=== PATIENT | male | born 1945 | race Caucasian/White ===

== ENCOUNTER 2017-06-25 22:22 | Emergency (ER) | payer BC ==
[~2017-06-25] VITALS: Ht 162.6 cm; Wt 63.5 kg
[~2017-06-25 22:22] MED LIST: ADVIL100 M2 PO; ALEVE220 M1 PO; APAP500 PO; LISINOPRIL-HCT1 EAC1 PO; METROGEL55 GM TP; PERCOCET 5-3251 EACH PO; PRILOSEC20 MG PO; TRAZODONE HCL100 MG PO; ZOCOR 10 MG TAB10 MG PO; ZOFRAN ODT4 MG PO
[2017-06-25 23:13] LABS: HEMOGLOBIN 14.4 gm/dL (14.0-18.0); MCH 30.6 pg (26.0-34.0); MCHC 34.4 g/dL (28.0-37.0); MCV 88.9 fL (80.0-100.0); PLATELET COUNT 167 thou/uL (150-400); RBC 4.72 mil/uL (4.50-6.00); RDW 13.4 % (10.5-14.5); WBC 5.2 thou/uL (4.0-11.0)
[2017-06-25 23:19] LABS: ANION GAP 13 mmol/L (7-16); BUN 9 mg/dL (7-18); CALCIUM 8.7 mg/dL (8.5-10.1); CHLORIDE 88 mmol/L (98-107); CO2 24 mmol/L (21-32); CREATININE 0.9 mg/dL (0.7-1.3); GLUCOSE 152 mg/dL (74-106); POTASSIUM 3.2 mmol/L (3.5-5.1); SODIUM 125 mmol/L (136-145)
[2017-06-25 23:23] LABS: MANUAL DIFF YES
[2017-06-25 23:28] LABS: ALKALINE PHOSPHATASE 82 U/L (46-116); DIRECT BILIRUBIN 0.2 mg/dL (<0.1-0.3); SGOT 29 U/L (15-37); SGPT 25 U/L (30-65); TOTAL BILIRUBIN 0.9 mg/dL (<0.1-1.0); TOTAL PROTEIN 7.6 g/dL (6.4-8.2); TROPONIN-I < 0.04 ng/mL (<0.04-0.07)
[2017-06-25] MEDS ORDERED: PHENERGAN 25 MG25 M1 PO (23:30)
[2017-06-25] MEDS ORDERED: PROMS25 WY RECTAL (23:30)
[2017-06-26 00:31] LABS: ABSOLUTE NEUTROPHILS 4.3 thou/uL (1.4-8.2); MYELOCYTES 1 %; TOTAL CELL COUNT 100
== END 2017-06-26 00:17 | disposition home or self-care (01) ==
LOC: ER 22:22
PROVIDERS: Emergency Medicine
DX: R51 Headache (principal); R11.2 Nausea with vomiting, unspecified; E87.6 Hypokalemia; I10 Essential (primary) hypertension; E78.00 Pure hypercholesterolemia, unspecified

== ENCOUNTER 2019-12-07 09:54 | Emergency (ER) | payer BC ==
[~2019-12-07] VITALS: Ht 162.6 cm; Wt 59.9 kg
[~2019-12-07 09:54] MED LIST changes: +PHENERGAN 25 MG25 M1 PO; +PROMS25 WY RECTAL
[2019-12-07 10:19] LABS: URINE BILIRUBIN NEGATIVE (Negative); URINE BLOOD NEGATIVE (Negative); URINE CLARITY CLEAR; URINE COLOR YELLOW; URINE GLUCOSE-RANDOM* NEGATIVE (Negative); URINE KETONES NEGATIVE (Negative); URINE LEUKOCYTES-REFLEX NEGATIVE (Negative); URINE NITRITE-REFLEX NEGATIVE (Negative); URINE PROTEIN (DIPSTICK) NEGATIVE (Negative); URINE UROBILINOGEN 0.2 E.U./dl (0.2-1.0)
[2019-12-07 10:51] LABS: HEMATOCRIT 42.1 % (42.0-52.0); HEMOGLOBIN 14.1 gm/dL (14.0-18.0); MCH 30.4 pg (26.0-34.0); MCHC 33.5 g/dL (28.0-37.0); MCV 90.7 fL (80.0-100.0); PLATELET COUNT 165 thou/uL (150-400); RBC 4.64 mil/uL (4.50-6.00); RDW 14.3 % (10.5-14.5); WBC 6.2 thou/uL (4.0-11.0)
[2019-12-07 10:59] LABS: CREATININE 0.9 mg/dL (0.7-1.3); POTASSIUM 3.7 mmol/L (3.5-5.1)
[2019-12-07 11:05] LABS: ALBUMIN 3.9 g/dL (3.4-5.0); TOTAL BILIRUBIN 0.8 mg/dL (<0.1-1.0); TOTAL PROTEIN 7.9 g/dL (6.4-8.2)
[2019-12-07 11:21] LABS: ATYPICAL LYMPHS 4 %; PLATELET ESTIMATE NORMAL
[2019-12-07] MEDS ORDERED: CIPROFLOXACIN500 M1 PO (12:12)
[2019-12-07] MEDS ORDERED: FLAGYL500 M1 PO (12:12)
[2019-12-07] MEDS ORDERED: MIRALAX119 GM PO (12:12)
[2019-12-07] MEDS ORDERED: NORCO 5-325 TA1 EAC1 PO (12:12)
[2019-12-07] MEDS ORDERED: ZOFRAN ODT4 MG PO (12:37)
[2019-12-07 12:45] VITALS: BP 131/69
== END 2019-12-07 12:45 | disposition home or self-care (01) ==
LOC: ER 09:54
PROVIDERS: Emergency Medicine
DX: K57.92 Diverticulitis of intestine, part unspecified, without perforation or abscess without bleeding (principal); I10 Essential (primary) hypertension; E78.00 Pure hypercholesterolemia, unspecified